=== PATIENT | female | born 1965 | race Caucasian/White ===

== ENCOUNTER → 2017-05-11 | Outpatient (CLI) | payer MEDICARE, BC | LOC: MHCPAIN 11:31 | DX: G89.29 Other chronic pain (principal); M47.817 Spondylosis without myelopathy or radiculopathy, lumbosacral region; M79.2 Neuralgia and neuritis, unspecified | CPT/HCPCS: G0463 ==

== ENCOUNTER → 2018-01-11 | Outpatient (CLI) | payer MEDICARE, BC | LOC: COL.RAD 08:12 | DX: K21.9 Gastro-esophageal reflux disease without esophagitis (principal); R68.81 Early satiety; R49.0 Dysphonia | CPT/HCPCS: A9541 ==

== ENCOUNTER → 2018-06-26 | Outpatient (REF) ==
[2018-06-26 16:40] LABS: THYROID STIMULATING HORMONE 0.447 uIU/mL (0.465-4.680)
== END ==
LOC: ZLAB.WCH 15:51
PROVIDERS: Internal Medicine
DX: Z01.89 Encounter for other specified special examinations (principal)

== ENCOUNTER → 2018-09-15 | Outpatient (REF) ==
[2018-09-15 14:50] LABS: THYROID STIMULATING HORMONE 0.588 uIU/mL (0.465-4.680)
== END ==
LOC: ZLAB.WCH 13:49
PROVIDERS: Internal Medicine
DX: Z01.89 Encounter for other specified special examinations (principal)